=== PATIENT | female | born 1980 | race Caucasian/White ===

== ENCOUNTER 2024-06-04 13:12 | Outpatient (CLI) | payer MEDICAID, SELFPAY ==
--- NOTE | 2024-06-04 13:10 | MM_ITS ---
WS: [id number] VIEWS: MLO and CC views both breasts. 3D digital tomosynthesis is also included in this exam. No previous exams. Findings: There are scattered areas of fibroglandular density. No suspicious mass, tumor calcification or architectural distortion identified. MM/MM scr BI tomosynthesis [id number] Impression: BI-RADS: 2 - Benign. FOLLOW-UP: 1 Year Follow-up This mammogram was also analyzed by the Computer Aided Detection System R2 [employer]ag [employer] Utility [employer].
== END 2024-06-04 13:13 | disposition home or self-care (01) ==
LOC: MOBLMAM 13:14
PROVIDERS: PCP Nurse Practitioner Family; Visit Provider Nurse Practitioner Family
DX: Z12.31 Encounter for screening mammogram for malignant neoplasm of breast (principal); R92.323 Mammographic fibroglandular density, bilateral breasts
CPT/HCPCS: 77063; 77067